=== PATIENT | male | born 1995 | race Caucasian/White ===

== ENCOUNTER 2018-04-11 17:23 | Emergency (ER) | payer MEDICAID, OTHER ==
[~2018-04-11] VITALS: Ht 188 cm; Wt 223.6 kg
--- NOTE | 2018-04-11 17:45 | NUR ---
PATIENT AMBULATED TO BED 1 AT THIS TIME.
[2018-04-11 17:48] VITALS: BP 164/70
--- NOTE | 2018-04-11 17:55 | NUR ---
22/ M BIB JULES, C/O COUGH X 2 DAYS WITH COGESTION, COLD SYMPTOMS FOR X1.5 WEEKS. INTERMITTENT DULL RIB PAIN 6/10 INDUCED BY COUGH. PATIENT DENIES CP, NUMBNESS AND TINGLIN, SOB, N/V/D, FEVERS, RHINORRHEA. PRODUCTIVE COUGH, LUNG SOUNDS ARE CLEAR, PATIENT BREATHING EFFORT IS EQAUL AND UNLABORED. AOX4, CLEAR SPEECH, SKIN IS WARM AND DRY, SAFETY PRECAUTIONS IN PLACE.
--- NOTE | 2018-04-11 18:20 | NUR ---
PATIENT RETURNED FROM XRAY, VIA WHEELCHAIR.
[2018-04-11 19:16] VITALS: BP 140/76
--- NOTE | 2018-04-11 19:16 | NUR ---
Patient discharged with v/s stable. Written and verbal after care instructions given and explained. Patient alert, oriented and verbalized understanding of instructions. Ambulatory with steady gait. All questions addressed prior to discharge. ID band removed. Patient advised to follow up with PMD. Rx of ALTAMIST, ALBUTEROL, PREDNISONE, SUDAFED given. Patient educated on indication of medication including possible reaction and side effects. Opportunity to ask questions provided and answered.
== END 2018-04-11 19:16 | disposition home or self-care (01) ==
LOC: MED 17:23
DX: J98.01 Acute bronchospasm (principal)
CPT/HCPCS: 71046; 99283

== ENCOUNTER 2018-10-11 09:30 | Emergency (ER) | payer OTHER ==
[~2018-10-11] VITALS: Ht 185.4 cm; Wt 226.8 kg
[2018-10-11 09:35] VITALS: BP 159/107
--- NOTE | 2018-10-11 09:39 | NUR ---
Patient ambulated to bed 2. RN evaluating patient at bedside.
--- NOTE | 2018-10-11 09:40 | NUR ---
C/O R RIB PAIN 11/16 AND SHARP STARTING YESTERDAY. PT DENIES INJURY. PT STATES THAT HIS RIB FEELS BETTER WHEN LAYING ON IT, AND HURTS MORE WHEN HE GETS UP. DENIES DYSURIA/FREQUENCY/N/V/FEVER/RECENT ILLNESS. BED IN LOW POSITION, SIDE RAIL UP X1.
--- NOTE | 2018-10-11 10:30 | NUR ---
ERMD AT PT BEDSIDE
[2018-10-11] MEDS ORDERED: HYDROcodone/APAP 5/325 MG 1 TAB TAB PO ONE (10:35)
[2018-10-11] MEDS ORDERED: IBUPROFEN 800 MG TAB PO ONE (10:35)
[2018-10-11 11:45] VITALS: BP 152/101
--- NOTE | 2018-10-11 11:45 | NUR ---
Patient discharged with v/s stable. Written and verbal after care instructions given and explained. Patient alert, oriented and verbalized understanding of instructions. Ambulatory with steady gait. All questions addressed prior to discharge. ID band removed. Patient advised to follow up with PMD. Rx of NORCO, IBUPROFEN given. Patient educated on indication of medication including possible reaction and side effects. Opportunity to ask questions provided and answered. PT INSTRUCTED NOT TO DRIVE AFTER TAKING NORCO. PT GIVEN EXCUSE FOR WORK TODAY.
== END 2018-10-11 11:45 | disposition home or self-care (01) ==
LOC: MED 09:30
DX: M62.838 Other muscle spasm (principal); R07.81 Pleurodynia
CPT/HCPCS: 71046; 93005; 99283